=== PATIENT | male | born 1955 | race African-American/Black ===

== ENCOUNTER 2019-05-11 07:59 | Day surgery (SDC) | payer BC ==
[~2019-05-11] VITALS: Ht 185.4 cm; Wt 104.3 kg
[~2019-05-11 07:59] MED LIST: FISH OIL 1,0001 EAC5 PO; FLOMAX PO; MULTIVITAMINS PO; NORCO 5-325 TA1 EACH PO; VITAMIN C500 M2 PO; ZOFRAN 4 MG ORAL4 M1 DIS
[2019-05-11 09:25] VITALS: BP 131/79
[2019-05-11] MEDS ORDERED: PERCOCET 5-3251 EACH PO (11:35)
[2019-05-11 11:43] VITALS: BP 131/79
--- NOTE | 2019-05-12 17:07 | PATH ---
[facility] [address] [place] [address] PATHOLOGY RPT PROCEDURE Name: PRESTON QUINTANILLA Room #: DEP [facility]..#: [id number] Admission: 05/11/19 Date of : 53 Discharge: 05/11/19 Report #: [id number] Path Case #: [id number] [facility] Accession Number: [id number] . 01 Material submitted: . back - LIPOMA. Modifiers: left . 01 Clinical history: . Benign lipomatous neoplasm of skin and subcutaneous . 02 Diagnosis: Mature adipose tissue, "lipoma", excision: - Compatible with a lipoma. - Fragments of reactive skeletal muscle. (IUV:pit 05/12/2019) QTP 05/12/2019 1212 Local . 02 Electronically signed: . Yelena Bailey MD, Pathologist NPI- [id number] . 01 Gross description: . The specimen is received in formalin, labeled "Preston Quintanilla, lipoma". The site is designated on the demographic sheet as, "left back". Received is an intact, and Laid segment of bright yellow lobulated tissue measuring 12.4 x 6.5 x 2.9 cm in greatest mentions. There is a slight amount of attached possible red-brown muscle identified. Sectioning reveals bright yellow, lobulated cut surfaces throughout with no grossly distinct nodules or lesions. The specimen is submitted representatively in cassettes A1 and A2, with the attached possible muscle submitted in cassette A1. (CAA; 05/11/2019) QAC/QAC 05/11/2019 1603 Local . 02 Pathologist provided ICD-10: D17.1 . 02 CPT . 445822 Specimen Comment: A courtesy copy of this report has been sent to [phone] Specimen Comment: [phone] Specimen Comment: Report sent to / DR SOLIS Performed at: [address] [facility], [place] [id number] MD Han Piña MD Phone: [phone] Performed at: 02 [place] [address] PATHOLOGY RPT PROCEDURE Name: JACK QUINTANILLANeema Farnsworth Room #: DEP [facility] M.R.#: [id number] Admission: 05/11/19 Date of : 53 Discharge: 05/11/19 Report #: [id number] Path Case #: [id number] [facility] [address], [place], [place] [id number] MD Yelena Bailey MD Phone: [phone]
--- NOTE | 2019-05-13 10:35 | O ---
[facility] [place] [address] OPERATIVE REPORT Name: PRESTON QUINTANILLA Room #: DEP [facility].#: [id number] Admission: 05/11/19 Attend Phys: Guilherme Howell MD Discharge: 05/11/19 Date of : 53 Report #: [id number] THIS REPORT FOR: cc: Lan Ibarra,Guilherme Martin MD ~ CC: Guilherme Ibarra DATE OF SERVICE: 05/11/2019 PREOPERATIVE DIAGNOSIS: Large left back mass consistent with a lipoma measuring 5 x 10 cm. POSTOPERATIVE DIAGNOSIS: Large intramuscular lipoma, measuring 2 inches x 10 inches in dimension. ANESTHESIA: IV sedation. COMPLICATIONS: None. ESTIMATED BLOOD LOSS: 10 mL. SURGEON: Guilherme Howell MD COMPLICATIONS: None. PROCEDURE NOTE: With the patient in the lateral position, he was sedated. Local Marcaine was used to anesthetize the skin and subcutaneous tissue. Transverse incision was made over the mass, even though the mass ran oval shaped in a longitudinal fashion in a cephalad caudad direction. After incising through skin and subcutaneous tissue, the fascia of the muscle was identified. The lipoma is felt and it is deeper than the muscle. The fascia was opened with cautery. The muscle was spread. After the submuscular space was opened, the lipoma was identified. The lipoma was well encapsulated and the lipoma was able to be bluntly freed and then lifted out of the cavity. This lipoma was quite elongated, measuring about 2 x 10 cm. I think it expanded a bit after it was removed from the space. Irrigation was performed, hemostasis obtained with clips. The fascia over the muscle was then closed with 3-0 PDS in subcuticular fashion. Subcutaneous tissue was closed with 4-0 PDS. Skin was closed with 4-0 PDS. Dermabond fluffy dressings applied. OpSite was used for dressing. The patient tolerated the procedure well and was taken to recovery room. <ELECTRONICALLY SIGNED> By: Guilherme Howell MD 05/13/19 [id number] [id number] Guilherme Howell MD /nt
== END 2019-05-11 12:20 | disposition home or self-care (01) ==
LOC: OR 07:59 → TBA 08:03 → OR 12:20
DX: D17.1 Benign lipomatous neoplasm of skin and subcutaneous tissue of trunk (principal); Z98.890 Other specified postprocedural states; Z87.442 Personal history of urinary calculi; Z85.46 Personal history of malignant neoplasm of prostate; Z79.899 Other long term (current) drug therapy; Z88.0 Allergy status to penicillin; Z88.8 Allergy status to other drugs, medicaments and biological substances; Z79.891 Long term (current) use of opiate analgesic
CPT/HCPCS: 50010; 50101; 50386; 50417; 51301; 54118; 56524; 56526; 70005